=== PATIENT | female | born 1980 | race Caucasian/White ===

== ENCOUNTER 2019-06-18 01:09 | Emergency (ER) | payer BC ==
[~2019-06-18] VITALS: Ht 175.3 cm; Wt 107.0 kg
[2019-06-18 01:44] VITALS: BP 161/119
[2019-06-18] MEDS ORDERED: NEOMY/BACITR/POLYMYXIN OINT PACKET. TP ONE ×2 (02:03→02:30)
[2019-06-18] MEDS ORDERED: HYDROcodone/APAP 7.5/325MG 1 TAB TABLET PO ONE (02:15)
[2019-06-18] MEDS ORDERED: HYDR-3165 PO (02:19)
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
== END 2019-06-18 02:40 | disposition home or self-care (01) ==
LOC: ER 01:09
DX: T22.111A Burn of first degree of right forearm, initial encounter (principal); T23.132A Burn of first degree of multiple left fingers (nail), not including thumb, initial encounter; T31.0 Burns involving less than 10% of body surface; F41.9 Anxiety disorder, unspecified; F32.9 Major depressive disorder, single episode, unspecified; M79.7 Fibromyalgia; E03.9 Hypothyroidism, unspecified; X10.1XXA Contact with hot food, initial encounter; Y93.89 Activity, other specified; Y92.89 Other specified places as the place of occurrence of the external cause; Y99.8 Other external cause status
CPT/HCPCS: 16020; 99284

== ENCOUNTER 2019-09-18 20:23 | Inpatient (IN) | payer BC ==
[~2019-09-18] VITALS: Ht 170.2 cm; Wt 131.0 kg
[~2019-09-18 20:23] MED LIST: HYDR-3165 PO
[2019-09-18] MEDS ORDERED: IV NORMAL SALINE 1,000ML 1,000 ML IV ONE ×2 (21:00→22:30)
--- NOTE | 2019-09-18 21:01 | PHYS DOC ---
Past History Past Medical History: Anxiety, Asthma, Depression, Fibromyalgia, Hypertension, Hypothyroid Past Surgical History: Other Additional Past Surgical Histo: bilateral carpal tunnel Smoking: Non-smoker Alcohol Use: Rarely Drug Use: None General Adult EDM: Chief Complaint: SHORTNESS OF BREATH HPI: HPI: 39-year-old female presents with nonproductive cough, fever, chills, malaise, and shortness of air 3 days. Patient reports symptoms have progressively worsened. Reports MAXIMUM TEMPERATURE today 103.2 F. Patient reports she works at the [employer]. Denies direct COVID19 exposure. Denies leg swelling or calf tenderness. Denies trauma. Denies . Reports last menstrual cycle was 2 weeks ago. Review of Systems: Review of Systems: Constitutional: Reports fever, chills, and generalized malaise Eyes: Denies redness or eye pain HENT: Denies nasal congestion or sore throat Respiratory: Reports nonproductive cough and shortness of breath Cardiovascular: Denies chest pain or palpitations GI: Denies abdominal pain, nausea, or vomiting : Denies dysuria or hematuria Musculoskeletal: Denies back pain or joint pain Integument: Denies rash or skin lesions Neurologic: Denies headache, focal weakness or sensory changes Complete systems were reviewed and found to be within normal limits, except as documented in this note. Current Medications: Current Meds: Current Medications Medications (Trade) Dose Ordered Sig/Mitchell Start Time Stop Time Status Last Admin Dose Admin Sodium Chloride 1,000 ml @ 1,000 mls/hr 1X ONCE 09/18/19 21:00 09/18/19 21:59 Allergies: Allergies: Allergies Coded Allergies Type Severity Reaction Last Updated Verified Unable to Assess 06/18/19 No Physical Exam: PE: Constitutional: Well developed, well nourished, no acute distress, ill but non- toxic appearance HENT: Normocephalic, atraumatic, oropharynx moist, pharynx without erythema or exudate, TM clear bilaterally Eyes: PERRL, EOMI, conjunctiva normal, no discharge Neck: Normal range of motion, no tenderness, supple, no meningeal signs Cardiovascular: Heart rate tachycardic, regular rhythm Lungs & Thorax: Bilateral breath sounds diminished at bases, no wheezing Abdomen: Soft, no tenderness, no guarding/rebound tenderness/distention Skin: Warm, dry, no erythema, no rash Back: No tenderness, no CVA tenderness Extremities: No tenderness, ROM intact, no edema Neurologic: Alert and oriented X 3, normal motor function, normal sensory function, no focal deficits noted Psychologic: Affect normal, judgment normal EKG: EKG: [] Radiology/Procedures: Radiology/Procedures: PROCEDURE: PORTABLE CHEST 1V EXAM: CHEST 1 VIEW History: Shortness of breath, fever COMPARISON: None available. TECHNIQUE: Single portable radiograph of the chest FINDINGS: The cardiac silhouette is unremarkable. Minimal bibasilar lung atelectasis or infiltrates. The costophrenic sulci are clear and well demarcated. IMPRESSION: Minimal bibasilar lung atelectasis or infiltrates. Electronically signed by: Nirav Michaels MD (09/18/2019 10:48 PM) [id number] PROCEDURE: CT ANGIOGRAPHY CHEST Study: CT CHEST WITH CONTRAST - PULMONARY ANGIOGRAM History: Shortness of air. Elevated d-dimer. Comparison: None. Technique: Helical CT of the chest performed after the administration of 80 cc Omnipaque 350 intravenous contrast and timed for angiographic evaluation of the pulmonary arteries per PE protocol. Coronal and sagittal 3D MIP reformations were obtained. One or more of the following individualized dose reduction techniques were utilized for this examination: 1. Automated exposure control 2. Adjustment of the mA and/or kV according to patient size 3. Use of iterative reconstruction technique. Findings: Pulmonary Arteries: Degraded evaluation due to patient body habitus and bolus timing. Taking this into consideration no central pulmonary embolism is identified. The adequately assessed segmental and subsegmental pulmonary arteries appear patent as well. No main pulmonary artery dilatation. Heart/Systemic Vasculature: Normal aortic caliber. Unremarkable visualized great vessels. No CT findings of overt right heart strain. Mediastinum: A few borderline prominent mediastinal lymph nodes are identified such as at the upper mediastinum to the right of the trachea but these are not overtly pathologic based on size. Lungs: Lingular nodule on image 84 series 4 measures 3 mm. Pleural-based nodular focus with ill-defined margins on image 86 series 4 and image 94 series 6 measures up to 8 mm. A few additional millimetric nodules scattered throughout the right lung. No confluent infiltrate. No pleural effusion or pneumothorax. The central airways are patent. Neck/Axilla/Body Wall: Mildly prominent but still subcentimeter left axillary lymph nodes on image 23 series 4. The thyroid is unremarkable. Upper Abdomen: Presumed hepatic steatosis. Bones: No acute or aggressive osseous process. Scattered degenerative findings. Miscellaneous: None. IMPRESSION: 1. The study is made difficult by bolus timing and patient body habitus. Taking this into consideration no pulmonary embolism is identified. No CT findings of right heart strain. 2. A few millimetric pulmonary nodules are identified. A slightly larger pleural-based nodule at the right middle lobe measures up to 8 mm. The location and features of the 8mm nodular focus are not overtly suspicious but based on Fleischner guidelines follow-up CT of the chest in 6-12 months could be considered to confirm stability. 3. A few borderline prominent mediastinal lymph nodes are ultimately indeterminate but favored reactive/inflammatory in the absence of a known malignancy. If follow-up is performed for the right middle lobe nodule assessment for lymph node stability could be afforded at that time as well. 4. Probable hepatic steatosis. Electronically signed by: NAVI CUELLAR MD (09/19/2019 12:40 AM) [id number] Course & Med Decision Making: Course & Med Decision Making Pertinent Labs and Imaging studies reviewed. (See chart for details) Patient presents with history of present illness and physical exam concerning for possible COVID19. Fever addressed. IVF hydration given. EKG stable. Labs obtained and posted to chart. WBC 20.7 with Lactic acid 2.1. UA with signs of significant infection. SIRS criteria therefore met with tachycardia, fever, and elevated WBC. Patient meeting criteria for Severe Sepsis. IVF bolusing given based on IBW of 30ml/kg of 2000ml NS. Empiric Rocephin given. LDH slightly elevated. Ferritin pending. D-dimer elevated. Rapid influenza and rapid strep negative. CXR without acute process. CTA chest negative for large PE or significant signs of infection. Incidental pulmonary nodules noted. A copy of CT imaging provided to patient to give to PCP for future evaluation. COVID19 pending and cannot be excluded. Empiric azithromycin given. Patient requiring admission for further evaluation and treatment. Discussed with Dr. Garcia (hospitalist) who is in agreement with admission. Discussed findings and plan with patient, who acknowledges understanding and agreement. COVID-19 CRITERIA: The patient was evaluated during the global COVID-19 pandemic, and that diagnosis was suspected/considered upon their initial presentation. Their evaluation, treatment and testing was consistent with current guidelines for patients who present with complaints or symptoms that may be related to COVID-19. Allison Disclaimer: Allison Disclaimer: This electronic medical record was generated, in whole or in part, using a voice recognition dictation system. Departure Departure: Impression: Primary Impression: Severe sepsis Additional Impressions: Suspected COVID-19 virus infection UTI (urinary tract infection) Qualified Codes: N30.00 - Acute cystitis without hematuria Elevated d-dimer Hypomagnesemia Shortness of breath Incidental pulmonary nodule Disposition: ADMITTED INPATIENT Admitting Physician: Mata Garcia Condition: GUARDED Referrals: MONROE HARPER MD (PCP) COVID-19 Assessment COVID-19 Patient Risks: Age 65 or older: No Sign of co-morbidity: Yes Exp to person + for COVID: No Exp to PUI: No Travel from affected area: No Lower respiratory symptoms: Yes Fever: Yes PPE Use: Full PPE with N95 mask or PAPR: Yes Sepsis Assessment Date and Time of Assessment Date: Sep 18, 2019 Time: 22:00 Fluid Challenge: Is the fluid challenge complet: No IBW Target Volume Used: Yes BMI > 30: Yes Vital Signs Vital Signs Vital Signs Date Time Temp Pulse Resp B/P (MAP) Pulse Ox O2 Delivery O2 Flow Rate FiO2 09/18/19 21:19 100.6 117 20 149/102 (118) 100 Room Air Temperature Source: Oral Respirations Respiratory Effort: Normal Respiratory Pattern: Normal Cardiovascular Pulse Rhythm: Regular Heart: Nml rate, reg. rhythm Lung Sounds Breath Sounds: Diminished Capillary Refill Capillary Refill: Rt Hand < 3 seconds Peripheral Pulse Pulse Location: Radial Pulse Strength: Normal (2+) Pulse Assessment Method: Palpation Integumentary Skin: Warm, Dry Skin Moisture: Dry Skin Turgor: Normal Skin Color: warm, dry Fingernail Color: WNL Critical Care Time Critical care time was 30 minutes which includes time at bedside, spent in discussion of patient's care with specialists and/or family members, with interpretation of laboratory and/or radiological studies and is exclusive of procedures. TESFAYE MOTTA DO Sep 18, 2019 21:01
[2019-09-18] MEDS ORDERED: ACETAMINOPHEN 325 MG TABLET PO ONE (21:15)
[2019-09-18 21:48] LABS: BASO % 0 % (0-3); EOS % 0 % (0-3); HEMATOCRIT 37.3 % (36.0-47.0); HEMOGLOBIN 12.4 g/dL (12.0-15.5); LYMPH # 0.4 x10^3/uL (1.0-4.8); LYMPH % 2 % (24-48); MEAN CORPUSCULAR HEMOGLOBIN 31 pg (25-35); MEAN CORPUSCULAR HGB CONC 33 g/dL (31-37); MEAN CORPUSCULAR VOLUME 94 fL (79-100); MONO # 1.5 x10^3/uL (0.0-1.1); MONO % 7 % (0-9); NEUT # 18.7 x10^3uL (1.8-7.7); NEUT % 91 % (31-73); PLATELET COUNT 260 x10^3/uL (140-400); RED BLOOD COUNT 3.96 x10^6/uL (3.50-5.40); RED CELL DISTRIBUTION WIDTH 13.4 % (11.5-14.5); WHITE BLOOD COUNT 20.7 x10^3/uL (4.0-11.0)
[2019-09-18 21:53] LABS: ANION GAP 13 (6-14); BLOOD UREA NITROGEN 17 mg/dL (7-20); BUN/CREATININE RATIO 12 (6-20); CALCIUM 8.5 mg/dL (8.5-10.1); CARBON DIOXIDE 23 mmol/L (21-32); CHLORIDE 96 mmol/L (98-107); CREATININE 1.4 mg/dL (0.6-1.0); GFR 41.4; GLUCOSE 112 mg/dL (70-99); POTASSIUM 3.8 mmol/L (3.5-5.1); SODIUM 132 mmol/L (136-145)
[2019-09-18 22:01] LABS: BILIRUBIN,URINE NEG (NEG); CLARITY,URINE CLOUDY; COLOR,URINE YELLOW; GLUCOSE,URINE NEG (NEG)
[2019-09-18 22:02] LABS: BACTERIA,URINE MANY /HPF (0-FEW); NITRITE,URINE NEG (NEG); SQUAMOUS EPITHELIAL CELL,UR FEW /LPF; WBC,URINE >40 /HPF (0-4)
[2019-09-18 22:04] LABS: U PREG PATIENT NEGATIVE (NEG)
[2019-09-18 22:08] LABS: INFLUENZA A PATIENT NEGATIVE (NEGATIVE); INFLUENZA B PATIENT NEGATIVE (NEGATIVE)
[2019-09-18] MEDS ORDERED: cefTRIAXone SODIUM 1 GM VIAL ONE (22:12)
[2019-09-18] MEDS ORDERED: AZITHROMYCIN 500 MG VIAL. IV ONE (22:12)
[2019-09-18] MEDS ORDERED: IV NORMAL SALINE 250ML 250 ML ONE (22:12)
[2019-09-18] MEDS ORDERED: IV NORMAL SALINE 50ML 50 ML ONE (22:12)
[2019-09-18 22:24] LABS: ALBUMIN/GLOBULIN RATIO 0.9 (1.0-1.7); ALK PHOS 126 U/L (46-116); ALT (SGPT) 57 U/L (14-59); AST (SGOT) 38 U/L (15-37); LACTATE DEHYDROGENASE 238 U/L (81-234); MAGNESIUM 1.6 mg/dL (1.8-2.4); TOTAL BILIRUBIN 0.7 mg/dL (0.2-1.0); TOTAL PROTEIN 6.4 g/dL (6.4-8.2)
[2019-09-18] MEDS ORDERED: CONTRAST GIVEN MC PRN (22:30)
[2019-09-18] MEDS ORDERED: AZITHROMYCIN 500 MG in IV NORMAL SALINE 250ML 250 ML IV ONE (22:30)
[2019-09-18] MEDS ORDERED: MAGNESIUM SULFATE 2GM 50 ML IV ONE ×2 (22:45→23:00)
--- NOTE | 2019-09-18 22:51 | RAD ---
EXAM: CHEST 1 VIEW History: Shortness of breath, fever COMPARISON: None available. TECHNIQUE: Single portable radiograph of the chest FINDINGS: The cardiac silhouette is unremarkable. Minimal bibasilar lung atelectasis or infiltrates. The costophrenic sulci are clear and well demarcated. IMPRESSION: Minimal bibasilar lung atelectasis or infiltrates. Electronically signed by: Nirav Michaels MD (09/18/2019 10:48 PM) [id number]
[2019-09-18] MEDS ORDERED: IOHEXOL 350 MG/ML 100 ML VIAL. IV ONE (23:00)
[2019-09-18] MEDS ORDERED: ONDANSETRON PF 4 MG/2 ML VIAL. IVP PRN (23:00)
[2019-09-18 23:04] LABS: % BANDS 11 % (0-9); % LYMPHS 1 % (24-48); % MONOS 3 % (0-10); % SEGS 85 % (35-66); PLT ESTIMATE ADEQUATE (ADEQUATE)
--- NOTE | 2019-09-18 23:26 | EKG ---
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
--- NOTE | 2019-09-19 00:43 | RAD ---
Study: CT CHEST WITH CONTRAST - PULMONARY ANGIOGRAM History: Shortness of air. Elevated d-dimer. Comparison: None. Technique: Helical CT of the chest performed after the administration of 80 cc Omnipaque 350 intravenous contrast and timed for angiographic evaluation of the pulmonary arteries per PE protocol. Coronal and sagittal 3D MIP reformations were obtained. One or more of the following individualized dose reduction techniques were utilized for this examination: 1. Automated exposure control 2. Adjustment of the mA and/or kV according to patient size 3. Use of iterative reconstruction technique. Findings: Pulmonary Arteries: Degraded evaluation due to patient body habitus and bolus timing. Taking this into consideration no central pulmonary embolism is identified. The adequately assessed segmental and subsegmental pulmonary arteries appear patent as well. No main pulmonary artery dilatation. Heart/Systemic Vasculature: Normal aortic caliber. Unremarkable visualized great vessels. No CT findings of overt right heart strain. Mediastinum: A few borderline prominent mediastinal lymph nodes are identified such as at the upper mediastinum to the right of the trachea but these are not overtly pathologic based on size. Lungs: Lingular nodule on image 84 series 4 measures 3 mm. Pleural-based nodular focus with ill-defined margins on image 86 series 4 and image 94 series 6 measures up to 8 mm. A few additional millimetric nodules scattered throughout the right lung. No confluent infiltrate. No pleural effusion or pneumothorax. The central airways are patent. Neck/Axilla/Body Wall: Mildly prominent but still subcentimeter left axillary lymph nodes on image 23 series 4. The thyroid is unremarkable. Upper Abdomen: Presumed hepatic steatosis. Bones: No acute or aggressive osseous process. Scattered degenerative findings. Miscellaneous: None. IMPRESSION: 1. The study is made difficult by bolus timing and patient body habitus. Taking this into consideration no pulmonary embolism is identified. No CT findings of right heart strain. 2. A few millimetric pulmonary nodules are identified. A slightly larger pleural-based nodule at the right middle lobe measures up to 8 mm. The location and features of the 8mm nodular focus are not overtly suspicious but based on Fleischner guidelines follow-up CT of the chest in 6-12 months could be considered to confirm stability. 3. A few borderline prominent mediastinal lymph nodes are ultimately indeterminate but favored reactive/inflammatory in the absence of a known malignancy. If follow-up is performed for the right middle lobe nodule assessment for lymph node stability could be afforded at that time as well. 4. Probable hepatic steatosis. Electronically signed by: NAVI CUELLAR MD (09/19/2019 12:40 AM) [id number]
[2019-09-19 01:21] VITALS: BP 119/69
[2019-09-19] MEDS ORDERED: IRON15TA3 PO (01:49)
[2019-09-19] MEDS ORDERED: ARMO250T4 PO (01:49)
[2019-09-19] MEDS ORDERED: VERA240C2 PO (01:49)
[2019-09-19] MEDS ORDERED: OMEP40CA45 PO (01:49)
[2019-09-19] MEDS ORDERED: OXYB10TA7 PO (01:49)
[2019-09-19] MEDS ORDERED: CALC1CAP7 PO (01:49)
[2019-09-19] MEDS ORDERED: CYCL-331 PO (01:49)
[2019-09-19] MEDS ORDERED: LEVO75TA5 PO (01:49)
[2019-09-19] MEDS ORDERED: NAPR220T70 PO (01:49)
[2019-09-19] MEDS ORDERED: ALPR0.5T PO (01:49)
[2019-09-19] MEDS ORDERED: MULT-245 PO (01:49)
[2019-09-19] MEDS: ACETAMINOPHEN 325 MG TABLET PO PRN ×2 (06:35→14:15)
[2019-09-19 06:45] VITALS: BP 136/65
--- NOTE | 2019-09-19 13:12 | HP ---
ADMIT DATE: 09/18/2019 HISTORY OF PRESENT ILLNESS: The patient is a 39-year-old female patient who presented to the Emergency Room with a complaint of nonproductive cough, fever, chills, malaise and shortness of air for the last 3 days. She also reports symptoms have progressively worsened. Reports maximum temperature up to 103.2 Fahrenheit. The patient reports she works with the [employer], denies direct COVID-19 exposure. Denied leg swelling or calf tenderness. Denied any trauma, denied any . Her last menstrual period is about 2 weeks ago. She was extensively investigated in the Emergency Room and was found to have marked leukocytosis with a white cell count of 20,000 with predominantly 91% polymorphs. Her D-dimer was elevated at 2.23 and her chemistry showed she has mild lactic acidosis, impaired kidney function, mild hypokalemia. Her lactic dehydrogenase was slightly elevated and her BNP was elevated at 1264. Urinalysis showed the urine was cloudy with large amount more than 40 wbc's, and many bacteria. Her influenza A and B were negative. Group A streptococcus rapid test was negative. The patient was admitted with diagnosis of sepsis, lactic acidosis. She was also admitted with suspected COVID-19 virus infection and therefore, she was started on IV fluid, IV antibiotic. She was also started on ceftriaxone and azithromycin was given also magnesium sulfate, was admitted for further evaluation and treatment. The urine and blood were sent for culture and sensitivity as well as the COVID by PCR. PAST MEDICAL HISTORY: Significant for hypertension, hypothyroidism, exercise-induced bronchial asthma, morbid obesity, obstructive sleep apnea, on CPAP. She has also gastroesophageal reflux disease. Narcolepsy and generalized osteoarthritis. PAST SURGICAL HISTORY: Significant for bilateral carpal tunnel release and wisdom teeth extraction. ALLERGIES: She has no known drug allergies. MEDICATIONS: She is currently on following medications: She is on cyclobenzaprine 10 mg once a day, iron chewable tablet 27 mg daily, verapamil extended release 120 mg once a day, naproxen sodium 440 mg p.o. b.i.d., hydrocodone/APAP 5/325 one tablet every 6 hours, armodafinil for Nuvigil 250 mg daily, alprazolam 0.5 mg 3 times a day, calcium carbonate with vitamin D3. She takes 2 tablets daily, omeprazole 40 mg once a day, levothyroxine sodium 75 mcg once a day, oxybutynin chloride 10 mg twice a day, multivitamin 1 tablet once a day. FAMILY HISTORY: She has one brother older and healthy and 1 sister younger and healthy. Her father at age of 69 because of the complication of diabetes. Mother is still alive at age of 77. She has hyperlipidemia and hypothyroidism. SOCIAL HISTORY: She lives with her girlfriend. She does not smoke, does not drink alcohol or use recreational drugs. She works at the [employer]. REVIEW OF SYSTEMS: The patient denied any blurring of vision, cataract, glaucoma or macular degeneration. Denied any earache, tinnitus or sensorineural deafness. Denied any nosebleeds, stuffy nose or postnasal drip. Denied any sore throat, sore tongue, toothache, hoarseness of voice or difficulty swallowing. Denied any nausea, vomiting, diarrhea or constipation. Denied any hematemesis, melena or hematochezia. Denied any dysuria, frequency or hematuria. Denied any chest pain. Did complain of cough and shortness of breath, cough was nonproductive, did complain of fever. Denied any dizziness, lightheadedness, or vertigo. PHYSICAL EXAMINATION: GENERAL: On arrival to the Emergency Room, there was no pallor, jaundice, cyanosis or thyromegaly. No jugular venous distention. No limb edema. VITAL SIGNS: His heart rate was 117, blood pressure was 149/102, temperature was 100.2, respiratory rate was 20, and oxygen saturation 100% on room air. HEAD, EYES, EARS, NOSE AND THROAT: Showed normocephalic, atraumatic. NECK: Supple. HEART: Showed normal first and second heart sounds with no gallop, rub or murmur. CHEST: Clear to auscultation. No crepitation or rhonchi. ABDOMEN: Distended, soft, nontender. No guarding or rigidity. No organomegaly. All hernial orifice intact. Bowel sounds normal. NEUROLOGIC: She was awake, alert and oriented x 3. There is no motor or sensory abnormalities. PSYCHIATRIC: Psychologically, the affect and judgment are normal. LABORATORY DATA: While in the Emergency Room, she has had lab work done, which showed a white cell count of 20,700, hemoglobin 12, hematocrit 37, MCV 94 and platelet count 260,000 with a manual differential showed 91% polymorphs, 2% lymphocytes, 7% monocytes. Her serum sodium was 132, potassium 3.8, chloride 96, bicarbonate 23, anion gap of 13, BUN 17, creatinine 1.4, estimated GFR was 41 mL per minute, his glucose 112, calcium was 8.5. Her lactic acid was 2.1. Her total bilirubin, AST, alkaline phosphatase slightly elevated. ALT was normal. Her lactic acid was slightly high at 238. CK was 25, troponin was less than 0.017. Beta natriuretic peptide was 1264. Total protein was 6.4, albumin 3. Her prothrombin time was 12.1, INR 1.2, APTT was 39. D-dimer was 2.23. Urinalysis showed the urine was yellow, cloudy with a pH of 6, specific gravity of 1.020. There was large amount of protein, more than 100 mg/dL. The urine was negative for glucose. There was trace of ketones, moderate amount of blood, negative for nitrite and bilirubin. There was small amount of leukocyte esterase. There is 1-2 rbc's, more than 40 wbc's, and many bacteria. Urine test was negative. Her influenza A and B were negative. Group A streptococcus rapid test was negative. She has had a chest x-ray, which showed the cardiac silhouette is unremarkable, minimal bibasilar lung atelectasis or infiltrate. The costophrenic sulci are clear and well demarcated. Chest CT angio showed that the study is made difficult by the bolus timing and the patient's body habitus; however, taking this into consideration no pulmonary embolism identified. No CT finding of right heart strain. A few millimeters pulmonary nodule was identified. She has also few borderline prominent mediastinal lymph nodes are ultimately indeterminate, but favored reactive inflammatory in the absence of known malignancy. She has also probable hepatic steatosis. IMPRESSION AND PLAN: The patient was admitted with sepsis, urinary tract infection and also suspicion for COVID-19 virus infection. She was also found to have elevated D-dimer as well as hypomagnesemia that was treated and incidental pulmonary nodules. I will continue with IV ceftriaxone and I will add also some maybe oxycodone for pain. I did order some labs for tomorrow and decide on further management accordingly. IRASEMA TIDWELL MD DR: MAXWELL/peter JOB#: [id number] / [id number]
--- NOTE | 2019-09-19 13:21 | PN ---
DATE: SUBJECTIVE: The patient is resting slightly propped up in bed, in no apparent respiratory distress. She continued to have fever, cough which is nonproductive, and headache. PHYSICAL EXAMINATION: GENERAL: When I examined her this morning, she was pale, but no jaundice, cyanosis or thyromegaly. No jugular venous distention. No lower limb edema. VITAL SIGNS: Her heart rate was 105, blood pressure was 136/65, temperature was 100.2, respiratory rate was 18 and oxygen saturation was 96%. HEAD, EYES, EARS, NOSE AND THROAT: Showed normocephalic, atraumatic. NECK: Supple. HEART: Showed normal first and second heart sounds. No gallop or murmur. CHEST: Clear to auscultation. No crepitation or rhonchi. ABDOMEN: Distended, soft, nontender. No guarding or rigidity. No organomegaly. All hernial orifices intact. Bowel sounds normal. NEUROLOGIC: She was awake, alert, responding appropriately. All cranial nerves intact. She moves extremities without difficulty. She ambulates without assistance or assistive devices. Her intake and output were incompletely recorded. LABORATORY DATA: Today's lab is still pending at the time of this dictation. IMPRESSION: In summary, this is a 39-year-old female patient who presented with nonproductive cough, fever, chills, malaise, and shortness of air x 3. Her symptoms have been progressive. Her maximum temperature was 103.2 Fahrenheit. She works at the [employer]; however, denied any contact with COVID-19 positive. She was found to have probably UTI with marked leukocytosis and lactic acidosis. She was treated with IV fluid and IV ceftriaxone. She has also probably an overactive bladder together with hypomagnesemia that was treated and incidental pulmonary nodules. IRASEMA TIDWELL MD DR: MAXWELL/peter JOB#: [id number] / [id number]
[2019-09-19] MEDS: OXYBUTYNIN CHLORIDE 5 MG TABLET PO SCH ×2 (14:00→20:53)
[2019-09-19] MEDS: CYCLOBENZAPRINE 10 MG TABLET. PO SCH (14:00)
[2019-09-19] MEDS: ALPRAZolam 0.5 MG TABLET PO SCH ×2 (14:00→20:53)
[2019-09-19] MEDS: oxyCODONE IR 5 MG TABLET PO PRN ×3 (14:15→20:53)
[2019-09-19 14:16] VITALS: BP 158/96
[2019-09-19 14:37] LABS: BASO % 0 % (0-3); EOS % 0 % (0-3); HEMATOCRIT 36.3 % (36.0-47.0); LYMPH # 0.4 x10^3/uL (1.0-4.8); LYMPH % 3 % (24-48); MEAN CORPUSCULAR HEMOGLOBIN 31 pg (25-35); MEAN CORPUSCULAR HGB CONC 33 g/dL (31-37); MEAN CORPUSCULAR VOLUME 94 fL (79-100); MONO # 1.1 x10^3/uL (0.0-1.1); MONO % 7 % (0-9); NEUT # 13.2 x10^3uL (1.8-7.7); NEUT % 90 % (31-73); PLATELET COUNT 221 x10^3/uL (140-400); RED BLOOD COUNT 3.87 x10^6/uL (3.50-5.40); RED CELL DISTRIBUTION WIDTH 13.2 % (11.5-14.5); WHITE BLOOD COUNT 14.8 x10^3/uL (4.0-11.0)
[2019-09-19 14:46] LABS: ALBUMIN 2.5 g/dL (3.4-5.0); ALBUMIN/GLOBULIN RATIO 0.6 (1.0-1.7); CALCIUM 8.4 mg/dL (8.5-10.1); CREATININE 1.2 mg/dL (0.6-1.0); GFR 49.5; POTASSIUM 3.7 mmol/L (3.5-5.1); TOTAL BILIRUBIN 1.1 mg/dL (0.2-1.0); TOTAL PROTEIN 6.5 g/dL (6.4-8.2)
[2019-09-19] MEDS: VERAPAMIL SR 120 MG TABLET.ER. PO SCH (15:00)
[2019-09-19] MEDS: ENOXAPARIN 40 MG/0.4 ML SYRINGE. SQ SCH (17:06)
[2019-09-19 20:00] VITALS: BP 147/71
[2019-09-19] MEDS: AZITHROMYCIN 250 MG TABLET. PO SCH (20:53)
[2019-09-19] MEDS: LACTOBACILLUS RHAMNOSUS GG 1 CAPSULE. PO SCH (20:53)
[2019-09-19] MEDS: NAPROXEN 500 MG TABLET PO SCH (20:53)
[2019-09-19] MEDS: MULTIVITAMIN with MINERAL TABLET. PO SCH (20:53)
[2019-09-20 00:17] VITALS: BP 114/70
[2019-09-20] MEDS: LEVOTHYROXINE 75 MCG TABLET PO SCH (05:16)
[2019-09-20 05:39] VITALS: BP 101/58
[2019-09-20 06:28] LABS: HEMATOCRIT 35.2 % (36.0-47.0); HEMOGLOBIN 11.7 g/dL (12.0-15.5); RED BLOOD COUNT 3.72 x10^6/uL (3.50-5.40); RED CELL DISTRIBUTION WIDTH 13.9 % (11.5-14.5); WHITE BLOOD COUNT 11.7 x10^3/uL (4.0-11.0)
[2019-09-20 06:44] LABS: ALBUMIN 2.3 g/dL (3.4-5.0); ALBUMIN/GLOBULIN RATIO 0.5 (1.0-1.7); CALCIUM 8.7 mg/dL (8.5-10.1); CREATININE 1.2 mg/dL (0.6-1.0); GFR 49.5; POTASSIUM 3.4 mmol/L (3.5-5.1); TOTAL BILIRUBIN 1.3 mg/dL (0.2-1.0); TOTAL PROTEIN 6.5 g/dL (6.4-8.2)
[2019-09-20] MEDS: VERAPAMIL SR 120 MG TABLET.ER. PO SCH (08:16)
[2019-09-20] MEDS: CALCIUM CARB/VIT D3 500/200 TABLET PO SCH (08:17)
[2019-09-20] MEDS: OXYBUTYNIN CHLORIDE 5 MG TABLET PO SCH ×3 (08:17→20:29)
[2019-09-20] MEDS: ENOXAPARIN 40 MG/0.4 ML SYRINGE. SQ SCH ×2 (08:17→20:31)
[2019-09-20] MEDS: CYCLOBENZAPRINE 10 MG TABLET. PO SCH (08:18)
[2019-09-20] MEDS: LACTOBACILLUS RHAMNOSUS GG 1 CAPSULE. PO SCH ×2 (08:18→20:28)
[2019-09-20] MEDS: FERROUS SULFATE 325 MG TABLET. PO SCH (08:18)
[2019-09-20] MEDS: PANTOPRAZOLE 40 MG TABLET. PO SCH (08:18)
[2019-09-20] MEDS: NAPROXEN 500 MG TABLET PO SCH ×2 (08:18→20:30)
[2019-09-20] MEDS: ALPRAZolam 0.5 MG TABLET PO SCH ×3 (08:18→20:29)
[2019-09-20] MEDS: ARMODAFINIL 250 MG PO SCH (09:00)
[2019-09-20 12:05] VITALS: BP 128/75
--- NOTE | 2019-09-20 14:14 | PN ---
DATE: 09/20/2019 SUBJECTIVE: The patient is resting slightly propped up in bed, no apparent distress. She continued to complain of being weak; however, denied any other complaints, in particular, she has had no more headache or fever. PHYSICAL EXAMINATION: GENERAL: When I examined her, she looked well. She was slightly pale, but no jaundice, cyanosis or thyromegaly. No jugular venous distention. No lower limb edema. VITAL SIGNS: Her heart rate was 85, blood pressure was 128/75, temperature was 96.8, respiratory rate was 16, and oxygen saturation was 94% on room air. HEAD, EYES, EARS, NOSE AND THROAT: Showed normocephalic, atraumatic. NECK: Supple. HEART: Showed normal first and second heart sounds. No gallop or murmur. CHEST: Clear to auscultation. No crepitation or rhonchi. ABDOMEN: Distended, soft, nontender. NEUROLOGIC: She is awake, alert, responding appropriately. All cranial nerves intact. She moves extremities without difficulty. She ambulates without assistance or assistive devices. Her intake was 2900, no output was recorded. LABORATORY DATA: Her lab work this morning showed a white cell count down to 11,700, hemoglobin 11.7, hematocrit 35, MCV 95, and platelet count 245,000. Her chemistry showed a serum sodium 134, potassium 3.4, chloride 100, bicarbonate 24, anion gap of 10, BUN 17, creatinine 1.2, estimated GFR was 49 mL per minute. Her glucose 110. Calcium was 8.7. Total bilirubin is 1.3. Her AST, ALT, alkaline phosphatase slightly elevated. Her total protein was 6.5, albumin was 2.3. ASSESSMENT: This is a 39-year-old female patient who presented with nonproductive cough, fever, chills, malaise and shortness of air x 3 days. All her symptoms have been progressive. Her maximum temperature went up to 103.2 Fahrenheit. She works at the [employer]; however, she denied any contact with COVID-19 positive employee there. She was found to have UTI with markedly leukocyturia and lactic acidosis. Her blood culture has showed growth of gram-negative rods. The identification and sensitivity is still pending. She is now on IV fluid and IV ceftriaxone. She probably has an overactive bladder, hypomagnesemia and she does have incidental pulmonary nodules. She has morbid obesity, obstructive sleep apnea. OTHER MEDICAL PROBLEMS: Include: A. Hypertension. B. Hypothyroidism. C. Exercise-induced bronchial asthma. D. Morbid obesity, obstructive sleep apnea, on CPAP. She also has gastroesophageal reflux disease, narcolepsy, for which she is on modafinil and generalized osteoarthritis. My plan is to continue. We are waiting for her COVID test. Her influenza A and B were negative. Group A Streptococcus was negative. My plan is to continue with all her medication for the time being and I will repeat her lab work again tomorrow and once we have the identification and sensitivity and we have also the blood cultures she probably can be discharged home. Her liver are enzymes slightly worse today. Her AST is steadily rising from 38 to 84 to 157. Her ALT has also risen from 57 to 67 to 127 and her total bilirubin is 0.7, up to 1.1 and today 1.3. Her alkaline phosphatase was 126 and risen to 172 and today it is 114. Lactic acid has normalized. IRASEMA TIDWELL MD DR: MAXWELL/peter JOB#: [id number] / [id number]
[2019-09-20] MEDS: IV NORMAL SALINE 1,000ML 1,000 ML IV SCH (15:00)
[2019-09-20 19:34] VITALS: BP 110/79
[2019-09-20] MEDS: MULTIVITAMIN with MINERAL TABLET. PO SCH (20:29)
[2019-09-20] MEDS: AZITHROMYCIN 250 MG TABLET. PO SCH (20:36)
[2019-09-20 22:31] VITALS: BP 143/91
[2019-09-21] MEDS: IV NORMAL SALINE 1,000ML 1,000 ML IV SCH ×2 (01:00→11:00)
[2019-09-21] MEDS: LEVOTHYROXINE 75 MCG TABLET PO SCH (05:28)
[2019-09-21 05:36] VITALS: BP_SYST 137; BP_SYST 90; BP_DIAS 56; BP_DIAS 87
[2019-09-21 06:25] LABS: HEMATOCRIT 34.3 % (36.0-47.0); HEMOGLOBIN 11.5 g/dL (12.0-15.5); RED BLOOD COUNT 3.65 x10^6/uL (3.50-5.40); WHITE BLOOD COUNT 9.2 x10^3/uL (4.0-11.0)
[2019-09-21 06:45] LABS: ALBUMIN 2.1 g/dL (3.4-5.0); ALBUMIN/GLOBULIN RATIO 0.5 (1.0-1.7); CALCIUM 8.7 mg/dL (8.5-10.1); GFR 61.1; POTASSIUM 3.4 mmol/L (3.5-5.1); TOTAL BILIRUBIN 2.1 mg/dL (0.2-1.0); TOTAL PROTEIN 6.3 g/dL (6.4-8.2)
[2019-09-21 07:40] VITALS: BP 133/85
[2019-09-21] MEDS: CALCIUM CARB/VIT D3 500/200 TABLET PO SCH (07:49)
[2019-09-21] MEDS: ENOXAPARIN 40 MG/0.4 ML SYRINGE. SQ SCH ×2 (07:49→20:24)
[2019-09-21] MEDS: OXYBUTYNIN CHLORIDE 5 MG TABLET PO SCH ×3 (07:50→20:24)
[2019-09-21] MEDS: NAPROXEN 500 MG TABLET PO SCH (07:50)
[2019-09-21] MEDS: PANTOPRAZOLE 40 MG TABLET. PO SCH (07:50)
[2019-09-21] MEDS: LACTOBACILLUS RHAMNOSUS GG 1 CAPSULE. PO SCH ×2 (07:50→20:24)
[2019-09-21] MEDS: CYCLOBENZAPRINE 10 MG TABLET. PO SCH (07:50)
[2019-09-21] MEDS: FERROUS SULFATE 325 MG TABLET. PO SCH (07:50)
[2019-09-21] MEDS: ALPRAZolam 0.5 MG TABLET PO SCH (07:50)
[2019-09-21] MEDS: VERAPAMIL SR 120 MG TABLET.ER. PO SCH (08:11)
[2019-09-21] MEDS ORDERED: POTASSIUM CHLORIDE 20 MEQ TABLET.ER. PO ONE (08:30)
[2019-09-21] MEDS: ARMODAFINIL 250 MG PO SCH (09:00)
--- NOTE | 2019-09-21 09:24 | RAD ---
ABDOMEN LTD History: Abnormal liver enzymes. Comparison: None. Technique: Transabdominal ultrasound images are obtained of the right upper quadrant. Findings: Visualized pancreas is unremarkable. Liver is normal in echogenicity. Right hepatic lobe measures 24 cm. Portal flow is hepatopedal. Gallbladder has an unremarkable appearance. Common bile duct measures 3 mm in diameter. The right kidney measures 12.2 x 5.1 x 4.6 cm. No hydronephrosis. Aorta and IVC not well seen due to overlying bowel gas. IMPRESSION: 1. Hepatomegaly. Electronically signed by: Robinson Benz DO (09/21/2019 9:21 AM) [id number]
[2019-09-21 10:17] VITALS: BP 158/90
[2019-09-21] MEDS: MEROPENEM 1 GM in IV NORMAL SALINE 100ML 100 ML IV SCH ×2 (13:00→20:25)
--- NOTE | 2019-09-21 13:10 | PN ---
DATE: 09/21/2019 SUBJECTIVE: The patient is resting, slightly propped up, extremely lethargic, but arousable. PHYSICAL EXAMINATION: GENERAL: When I examined her, she was somewhat pale, but no jaundice or cyanosis. No lymphadenopathy, no thyromegaly. No jugular venous distention. No lower limb edema. VITAL SIGNS: Her heart rate was 90, blood pressure 158/90, temperature was 97, respiratory rate was 16, and oxygen saturation was 98% on room air. HEAD, EYES, EARS, NOSE AND THROAT: Normocephalic and atraumatic. NECK: Supple. HEART: Showed normal first and second heart sounds. No gallop, rub or murmur. CHEST: Clear to auscultation. No crepitation or rhonchi. ABDOMEN: Distended, soft, nontender. NEUROLOGIC: She is very lethargic, but arousable. All cranial nerves are intact. She moves extremities without difficulty. Her intake was 3170, no output was recorded. LABORATORY DATA: Her lab work this morning showed a white cell count is down to 9200, hemoglobin 11.5, hematocrit 34, MCV 94, and platelet count 265,000. Her chemistry showed a serum sodium 137, potassium 3.4, chloride 103, bicarbonate 24, anion gap of 10, BUN 14, creatinine was 1, and estimated GFR was 61 mL per minute. Her glucose was 94, calcium was 8.7; however, her total bilirubin, AST, ALT, alkaline phosphatase are steadily rising. Her total protein was 6.3, albumin was 2.1. Her prothrombin time, INR and aPTT are slightly elevated. Her D-dimer was high at 2.23. Urinalysis showed obviously that she has more than 40 wbc's. Her COVID-19 by PCR was negative. Her influenza A and B were negative. Group A Streptococcus was negative. I did abdominal ultrasound showed that the visualized pancreas is unremarkable. Liver is normal in echogenicity, right hepatic lobe measures 24 cm, portal flow is hepatopetal. Gallbladder has an unremarkable appearance, common bile duct measures 2 mm in diameter, right kidney measures 12.2 x 5.1 x 4.6. No hydronephrosis. The aorta and IVC not well seen due to overlying bowel gas pattern and other than hepatomegaly, there is no other abnormality. ASSESSMENT: This is a 39-year-old female patient who presented with, 1. Nonproductive cough, fever, chills, malaise and shortness of air for 3 days. All her symptoms have been progressive and her maximum temperature went up to 103.2 Fahrenheit. She works at the [employer]; however, she denied any contact with COVID-19 positive employee there. 2. She was found to have a urinary tract infection with marked leukocyturia and lactic acidosis. Her blood culture has grown gram-negative rods. The identification and sensitivity is still pending. 3. Her liver enzymes have been steadily rising. The ultrasound was unremarkable other than hepatomegaly, no evidence of acute cholecystitis or choledocholithiasis. 4. The patient is extremely lethargic and she is obviously known to have morbid obesity, obstructive sleep apnea. Also, she was on multiple medications ____ I have discontinued her alprazolam and azithromycin. I discontinued her Flexeril, naproxen as well as oxycodone. The azithromycin is might be contributing to her liver enzymes derangement. I believe also the abnormal liver enzymes might be caused by the ceftriaxone, as this is one of the side effects. The patient has multiple other medical problems including: A. Hypertension. B. Hypothyroidism. C. Exercise-induced bronchial asthma. PLAN: My plan is to continue with IV fluid. I will check her acute hepatitis serology. Check also her ammonia level and perhaps change her antibiotic to something that does not cause any problem with her ____. IRASEMA TIDWELL MD DR: MAXWELL/peter JOB#: [id number] / [id number]
[2019-09-21] MEDS: POTASSIUM CL 40MEQ IN 0.9%NACL 1,000 ML IV SCH ×2 (13:32→22:34)
[2019-09-21 14:40] VITALS: BP 146/93
[2019-09-21 15:46] LABS: BGAS PH 7.37 (7.35-7.45)
[2019-09-21 19:30] VITALS: BP 144/92
[2019-09-21] MEDS: MULTIVITAMIN with MINERAL TABLET. PO SCH (20:24)
[2019-09-21 23:26] VITALS: BP 157/95
[2019-09-22] MEDS: MEROPENEM 1 GM in IV NORMAL SALINE 100ML 100 ML IV SCH (05:05)
[2019-09-22] MEDS: LEVOTHYROXINE 75 MCG TABLET PO SCH (05:05)
[2019-09-22 05:51] LABS: HEMATOCRIT 36.2 % (36.0-47.0); HEMOGLOBIN 12.3 g/dL (12.0-15.5); RED BLOOD COUNT 3.9 x10^6/uL (3.50-5.40); RED CELL DISTRIBUTION WIDTH 14.2 % (11.5-14.5); WHITE BLOOD COUNT 8.7 x10^3/uL (4.0-11.0)
[2019-09-22 05:57] VITALS: BP 107/76
[2019-09-22 06:04] LABS: ALBUMIN 2.1 g/dL (3.4-5.0); ALBUMIN/GLOBULIN RATIO 0.5 (1.0-1.7); CALCIUM 8.7 mg/dL (8.5-10.1); GFR 61.1; POTASSIUM 3.7 mmol/L (3.5-5.1); TOTAL BILIRUBIN 2.9 mg/dL (0.2-1.0); TOTAL PROTEIN 6.5 g/dL (6.4-8.2)
[2019-09-22] MEDS: PANTOPRAZOLE 40 MG TABLET. PO SCH (07:30)
[2019-09-22] MEDS: FERROUS SULFATE 325 MG TABLET. PO SCH (08:00)
[2019-09-22] MEDS: CALCIUM CARB/VIT D3 500/200 TABLET PO SCH (08:00)
[2019-09-22 08:11] VITALS: BP 107/76
[2019-09-22] MEDS: VERAPAMIL SR 120 MG TABLET.ER. PO SCH (08:11)
[2019-09-22] MEDS: OXYBUTYNIN CHLORIDE 5 MG TABLET PO SCH (08:12)
[2019-09-22] MEDS: ENOXAPARIN 40 MG/0.4 ML SYRINGE. SQ SCH (08:12)
[2019-09-22] MEDS: LACTOBACILLUS RHAMNOSUS GG 1 CAPSULE. PO SCH (08:12)
[2019-09-22] MEDS: POTASSIUM CL 40MEQ IN 0.9%NACL 1,000 ML IV SCH (08:55)
--- NOTE | 2019-09-22 10:16 | DS ---
DATE OF DISCHARGE: 09/22/2019 ATTENDING PHYSICIAN: Dr. Garcia. FINAL DISCHARGE DIAGNOSES: 1. Upper respiratory tract infection, resolved. 2. COVID-19 coronavirus negative. 3. History of narcolepsy. 4. Dyspnea, resolved. 5. Essential hypertension. 6. Hypothyroidism, on replacement. 7. Depression with fibromyalgia. 8. History of asthma. HISTORY OF PRESENT ILLNESS: This is a 39-year-old female who works at the [employer]formerly [employer] and not [facility]. She had a 3-day history of shortness of breath, cough, fevers up to 103.2 degrees Fahrenheit. She was admitted for further evaluation. PHYSICAL EXAMINATION: Please see the dictated note. PERTINENT LABORATORY AND X-RAY STUDIES: Her COVID-19 coronavirus swab was reported as negative. Hemoglobin maintained at 12.4 g/dL with a white count of 8700. Chemistry panel was unremarkable, normal BUN and creatinine, electrolytes. Hepatitis A, B and C were nonreactive. Influenza A and B were negative. Group A strep was negative. COURSE IN THE HOSPITAL: The patient was admitted. She was placed on empiric antibiotics for suspected UTI. No further symptoms. COVID-19 coronavirus swab was reported as negative. She did fairly well. Workup showed some hepatomegaly due to probable nonalcoholic steatohepatitis. She was discharged home then with a recommendation to avoid further secondhand smoke. Her discharge meds are unchanged. She should continue her Nuvigil dose unchanged. Xanax as needed, calcium, Flexeril p.r.n., hydrocodone, iron supplements, Synthroid 75 mcg daily, multivitamin, Aleve p.r.n., omeprazole, oxybutynin, and verapamil 120 daily. Her prognosis is fair. She was discharged then from our hospital in stable condition with explicit instructions on followup care. JODY PADRON MD DR: KATERINA/peter JOB#: [id number] / [id number] IRASEMA Brown MD
== END 2019-09-22 10:45 | disposition home or self-care (01) | DRG 690 ==
LOC: ER 20:23 → 1 SOUTH 23:04
PROVIDERS: ADMIT Internal Medicine; ATTEND Internal Medicine
DX: N39.0 Urinary tract infection, site not specified (principal); J06.9 Acute upper respiratory infection, unspecified; J45.909 Unspecified asthma, uncomplicated; F32.9 Major depressive disorder, single episode, unspecified; M79.7 Fibromyalgia; E03.9 Hypothyroidism, unspecified; I10 Essential (primary) hypertension; E83.42 Hypomagnesemia; E87.6 Hypokalemia; G47.33 Obstructive sleep apnea (adult) (pediatric); K21.9 Gastro-esophageal reflux disease without esophagitis; E66.01 Morbid (severe) obesity due to excess calories; K75.81 Nonalcoholic steatohepatitis (NASH); M15.9 Polyosteoarthritis, unspecified; Z83.3 Family history of diabetes mellitus; Z20.818 Contact with and (suspected) exposure to other bacterial communicable diseases
CPT/HCPCS: 36415; 71045; 71275; 76705; 80053; 81001; 81025; 82140; 82553; 82728; 82803; 83605; 83615; 83735; 83880; 84484; 85007; 85025; 85027; 85379; 85610; 85730; 86705; 86709; 86803; 87040; 87070; 87086; 87205; 87340; 87635; 87804; 87880; 93005; 96365; 96366; 96367; 96368; J0456; J0696; J1650; J2185; J3475; J7050; Q9967; 99291-25; J7030

== ENCOUNTER → 2020-10-02 | Outpatient (CLI) | payer BC, OTHER ==
[~2020-10-02] MED LIST changes: +ALPR0.5T PO; +ARMO250T4 PO; +CALC1CAP7 PO; +CYCL-331 PO; +IRON15TA3 PO; +LEVO75TA5 PO; +MULT-245 PO; +NAPR220T70 PO; +OMEP40CA45 PO; +OXYB10TA7 PO; +VERA240C2 PO
--- NOTE | 2020-10-02 17:40 | RAD ---
EXAM: Left hand, 3 views. HISTORY: Trauma. COMPARISON: None. FINDINGS: 3 views of the left hand are obtained. There is no acute fracture, dislocation or subluxati on. There is first carpometacarpal joint space narrowing with subchondral sclerosis and spurring. The re is a corticated ossicle adjacent to the trapezium. There is no radiodense foreign body. IMPRESSION: 1. No acute osseous finding. 2. Moderate first carpometacarpal joint osteoarthritis. Electronically signed by: Veronica Schmitt MD (10/02/2020 5:38 PM) [facility]
== END ==
LOC: PMG 17:20
PROVIDERS: ATTEND Family Medicine
DX: M18.12 Unilateral primary osteoarthritis of first carpometacarpal joint, left hand (principal)
CPT/HCPCS: 73130

== ENCOUNTER → 2021-01-18 | Outpatient (CLI) | payer BC ==
[~2021-01-18] MED LIST changes: +CASIRIVIMAB/IMDEVIMAB 600/600mg in IV NS TV=50 ML IV ONE; -OMEP40CA45 PO; +OMEP40CA7 PO
--- NOTE | 2021-01-18 18:50 | NUR ---
pt arrived for out pt infusion per orders and policies and procedures. pt monitored and vitals checked 1 hour after infusion complete with no reaction noted.
== END | disposition home or self-care (01) ==
LOC: OPINF 11:29
PROVIDERS: ATTEND Family Medicine
DX: U07.1 COVID-19 (principal)
CPT/HCPCS: M0243; Q0243

== ENCOUNTER → 2021-05-17 | Outpatient (CLI) | payer BC ==
[~2021-05-17] MED LIST changes: -CASIRIVIMAB/IMDEVIMAB 600/600mg in IV NS TV=50 ML IV ONE; -CYCL-331 PO; +CYCL10TA19 PO
--- NOTE | 2021-05-17 12:53 | RAD ---
EXAM: Chest CT without intravenous contrast. HISTORY: Pulmonary nodule follow-up. TECHNIQUE: Computed tomographic images of the chest were obtained without contrast. Multiplanar refor matting was performed. *One or more of the following individualized dose reduction techniques were utilized for this examina tion: 1. Automated exposure control. 2. Adjustment of the mA and/or kV according to patient size. 3. Use of iterative reconstruction technique. COMPARISON: 09/18/2019. FINDINGS: The heart is normal in size. The aorta is normal in caliber. There are prominent mediastina l and hilar lymph nodes. These are stable slightly decreased compared to the prior study. This favors a benign physiologic or reactive etiology. For reference purposes, there is a 1.3 cm right paratrach eal lymph node, previously measuring 1.4 cm. There is no pneumothorax or pleural effusion. There is n o infiltrate. There is a stable 8 mm pleural-based nodule within the anterior right middle lobe. There is a stable 2 mm pleural-based nodule within the anterior right middle lobe. There is a stable 2 mm nodule within the posterior right lower lobe. There is a stable elongated 3 mm nodule abutting the pleura of the p osterior left upper lobe. There is a stable 2 mm nodule within the lateral left upper lobe. Evaluation of the upper abdomen demonstrates no acute finding. There is no acute or suspicious osseou s finding. IMPRESSION: 1. Stable bilateral pulmonary nodules, the largest of which is pleural-based and measures 8 mm within the anterior right middle lobe. The greater than 1.5 year course of stability favors benignity. Mccullough ar, longer-term follow-up is recommended. Follow-up can be performed in 6-12 months to confirm a gre ater than two-year course of stability. 2. No acute thoracic finding. 3. Slight interval decrease in mediastinal and hilar lymph nodes. This favors a physiologic or reacti ve etiology. Electronically signed by: Veronica Schmitt MD (05/17/2021 12:50 PM) [id number]
== END ==
LOC: CT 11:27
PROVIDERS: ATTEND Family Medicine
DX: R91.8 Other nonspecific abnormal finding of lung field (principal)
CPT/HCPCS: 71250

== ENCOUNTER → 2021-10-19 | Outpatient (CLI) | payer BC ==
--- NOTE | 2021-10-19 13:09 | RAD ---
XR CHEST 2V History: Reason: RESPIRATORY INFECTION / Spl. Instructions: / History: Comparison: September 18, 2019 Findings: No consolidation or pleural effusion. Normal heart size. No pneumothorax. Impression: 1. No acute cardiopulmonary process. Electronically signed by: Robinson Benz DO (10/19/2021 1:06 PM) [id number]
== END ==
LOC: RAD 12:23
PROVIDERS: ATTEND Family Medicine
DX: R09.89 Other specified symptoms and signs involving the circulatory and respiratory systems (principal)
CPT/HCPCS: 71046